=== PATIENT | female | born 1955 | race Caucasian/White ===

== ENCOUNTER 2020-07-27 13:17 | Emergency (ER) | payer OTHER ==
[~2020-07-27] VITALS: Ht 152.4 cm; Wt 131.5 kg
[2020-07-27 13:58] VITALS: BP 137/68
--- NOTE | 2020-07-27 14:35 | NUR ---
PT STATES SHE URINATED PRIOR TO COMING TO ER AND STATES SHE CANT GO AT THIS TIME.
[2020-07-27] MEDS ORDERED: fentaNYL citrate 0.05 MG/ML VIAL IM ONE (14:50)
--- NOTE | 2020-07-27 15:00 | NUR ---
65 YEAR OLD FEMALE COMPLAINS OF RIGHT LEG PAIN WITH HISTORY OF SCIATIC NERVE PROBLEMS. PT STATES PAIN IS CHRONIC BUT WORSE THE PAST COUPLE OF DAYS. PT DENIES LOSING SENSATION IN LEGS, PEDAL PULSE +3, CAP REFILL <3 SEC. PT AOX4, BREATHING EVEN AND UNLABORED, SKIN WARM AND DRY. BED IN LOWEST POSITION, LOCKED, BED RAIL UPX1. PT UNABLE TO AMBULATE, STATES PAIN WAY TOO MUCH. PMH - HTN, GERD ALLERGIES - NKA
--- NOTE | 2020-07-27 15:40 | NUR ---
PT STATES SHE STILL HAS PAIN, OZIEL MCCORMICK MADE AWARE
[2020-07-27] MEDS ORDERED: MORPHINE SULFATE 4 MG/ML SYR IM ONE (17:05)
--- NOTE | 2020-07-27 17:40 | NUR ---
Patient discharged with v/s stable. Written and verbal after care instructions about sciatica, urinary tract infection given and explained. Patient alert, oriented and verbalized understanding of instructions. Ambulatory with steady gait. All questions addressed prior to discharge. ID band removed. Patient advised to follow up with PMD. Rx of NAPROSYN, VOLTAREN given. Patient educated on indication of medication including possible reaction and side effects. Opportunity to ask questions provided and answered.
[2020-07-27 17:45] VITALS: BP 125/49
== END 2020-07-27 17:40 | disposition home or self-care (01) ==
LOC: MED 13:17
DX: M54.40 Lumbago with sciatica, unspecified side (principal); N39.0 Urinary tract infection, site not specified; K21.9 Gastro-esophageal reflux disease without esophagitis; I10 Essential (primary) hypertension; Z98.890 Other specified postprocedural states
CPT/HCPCS: 72131; 72192; 81002; 96372; 99285; J2270; J3010